=== PATIENT | female | born 1965 | race Asian ===

== ENCOUNTER → 2016-12-07 | Outpatient (CLI) | payer BC ==
[~2016-12-07] MED LIST: RANI150T9 PO
--- NOTE | 2016-12-07 17:52 | RADRPT ---
PROCEDURE: CT Brain without contrast. CLINICAL INDICATION: Headache. TECHNIQUE: A CT of the brain without contrast was performed utilizing axial sections from the skul l base through the vertex. The patient was scanned without intravenous contrast enhancement. Sagitta l and coronal reformatted images were obtained using the data from the axial images. Total exam DLP is 630.20 mGy-cm. CTDIvol is 44.99 mGy. One or more of the following dose reduction techniques we re used: Automated exposure control, adjustment of the mA and/or kV according to patient size, use o f iterative reconstruction technique. COMPARISON: None available FINDINGS: There is normal webster-white matter differentiation. The ventricles and cisterns are normal. There is no intracranial hemorrhage or space-occupying lesion. There is no skull fracture or lytic lesion. IMPRESSION: 1. Normal noncontrast CT scan of the brain. RPTAT: QQ .Jose Shaffer MD, MD Date Time Electronically viewed and signed by .Jose Shaffer MD, MD on 12/07/2016 17:52 .R/
--- NOTE | 2016-12-07 19:24 | RADRPT ---
PROCEDURE: CT scan sinuses CLINICAL INDICATION: Frontal headaches.. TECHNIQUE: CT scan of the sinuses was performed on a multidetector scanner. Direct contiguous axi al images were obtained through the paranasal sinuses. Coronal and sagittal reformatted images were obtained from the axial source images. No IV contrast was administered. Images were reviewed on a high-resolution PACS workstation. CTDlvol = 24 mGy andDLP = 368 mGy-cm. COMPARISON: CT brain 12/07/2016. FINDINGS: There is minimal bilateral maxillary sinus mucosal thickening of 1-2 mm. Remainder of the paranasal sinuses are clear. No air-fluid level is identified. No polyp or mass lesion is seen. There is n o mucoid impaction or mucous retention cyst. The ostiomeatal complexes are symmetrically patent. N meme septum is deviated to the left of midline.. The surrounding osseous structures are unremarkabl e. No mass lesion is seen. The soft tissue structures of the face and orbits and paranasal sinuses regions are all normal. IMPRESSION: 1. No evidence for acute sinusitis. 2. Minimal bilateral maxillary sinus mucosal thickening. 3. Nasal septal deviation to the left. RPTAT: HMVK .Rios Valle MD, MD Date Time Electronically viewed and signed by .Rios Valle MD, on 12/07/2016 19:24 .K/
== END | disposition home or self-care (01) ==
LOC: C/S 15:10
PROVIDERS: ATTEND Internal Medicine
DX: R51 Headache (principal); J34.2 Deviated nasal septum
CPT/HCPCS: 70450; 70486

== ENCOUNTER → 2016-12-08 | Outpatient (CLI) | payer BC | END | disposition home or self-care (01) | LOC: LAB 09:14 | PROVIDERS: ATTEND Internal Medicine | DX: E78.5 Hyperlipidemia, unspecified (principal) | CPT/HCPCS: 80061 ==

== ENCOUNTER → 2017-05-05 | Outpatient (CLI) | payer BC ==
[2017-05-05 10:15] LABS: ADD SCAN DIFF NO
[2017-05-05 10:17] LABS: BASOPHIL # 0.1 10^3/ul (0.0-0.1); BASOPHILS % 1.5 % (0.0-2.0); EOSINOPHILS # 0.1 10^3/ul (0.0-0.5); EOSINOPHILS % 2.5 % (0.0-7.0); HEMATOCRIT 43.9 % (37.0-47.0); HEMOGLOBIN 14.2 g/dl (12.0-16.0); LYMPHOCYTES # 1.5 10^3/ul (0.8-2.9); LYMPHOCYTES % 27.7 % (15.0-51.0); MEAN CORPUSCULAR HEMOGLOBIN 28.3 pg (29.0-33.0); MEAN CORPUSCULAR HGB CONC 32.3 g/dl (32.0-37.0); MEAN CORPUSCULAR VOLUME 87.6 fl (82.0-101.0); MONOCYTE # 0.5 10^3/ul (0.3-0.9); MONOCYTES % 9.8 % (0.0-11.0); NEUTROPHIL # 3.1 10^3/ul (1.6-7.5); NEUTROPHILS % 58.3 % (39.0-77.0); PLATELET COUNT 295 10^3/UL (140-415); RED BLOOD COUNT 5.01 10^6/ul (4.20-5.40); RED CELL DISTRIBUTION WIDTH 12.6 % (11.5-14.5); WHITE BLOOD COUNT 5.3 10^3/ul (4.8-10.8)
[2017-05-05 10:36] LABS: ADD UMIC YES; INR 0.91; PARTIAL THROMBOPLASTIN TIME 29.1 Sec (25.0-35.0); PROTIME 12.2 Sec (12.2-14.2); URINE BILIRUBIN (Dip) NEGATIVE (NEGATIVE); URINE BLOOD (Dip) 3+ (NEGATIVE); URINE COLOR LT. YELLOW (YELLOW); URINE GLUCOSE (Dip) NEGATIVE (NEGATIVE); URINE KETONES (Dip) NEGATIVE (NEGATIVE); URINE LEUKOCYTE ESTERASE (Dip) TRACE (NEGATIVE); URINE NITRITE (Dip) NEGATIVE (NEGATIVE); URINE TOTAL PROTEIN (Dip) NEGATIVE (NEGATIVE); URINE UROBILINOGEN (Dip) 0.2 E.U./dL (0.1-1.0)
[2017-05-05 10:45] LABS: ALBUMIN 5.3 g/dl (3.3-4.9); BILIRUBIN,INDIRECT 0.5 mg/dl (0-1.1); BILIRUBIN,TOTAL 0.5 mg/dl (0.2-1.3); CALCIUM 9.8 mg/dl (8.4-10.2); CHOL/HDL RATIO 2.4 RATIO; CREATININE 0.81 mg/dl (0.44-1.00); MAGNESIUM 2.2 mg/dl (1.7-2.5); POTASSIUM 4.4 mmol/L (3.5-5.1); TOTAL PROTEIN 9.1 g/dl (6.1-8.1); URIC ACID 6.9 mg/dl (3.1-7.9)
[2017-05-05 10:59] LABS: BACTERIA,URINE FEW; URINE RBCS 25-50 /HPF (0)
[2017-05-05 12:19] LABS: T3 UPTAKE 34.5 % (23.5-40.5)
[2017-05-05 12:34] LABS: THYROID STIMULATING HORMONE 2.15 MIU/L (0.465-4.680)
== END | disposition home or self-care (01) ==
LOC: LAB 09:37
PROVIDERS: ATTEND Internal Medicine
DX: R10.9 Unspecified abdominal pain (principal); M54.9 Dorsalgia, unspecified
CPT/HCPCS: 80048; 80061; 80076; 81001; 82607; 82652; 82977; 83036; 83735; 84436; 84443; 84479; 84560; 85025; 85610; 85651; 85730

== ENCOUNTER → 2018-01-04 | Outpatient (CLI) | END | disposition home or self-care (01) ==

== ENCOUNTER → 2018-06-07 | Outpatient (CLI) | END | disposition home or self-care (01) ==

== ENCOUNTER → 2019-05-22 | Outpatient (CLI) | payer BC ==
[~2019-05-22] MED LIST changes: +RANI150T35 PO; -RANI150T9 PO
== END | disposition home or self-care (01) ==
LOC: U/S 09:12
PROVIDERS: ATTEND Internal Medicine
DX: R10.9 Unspecified abdominal pain (principal)
CPT/HCPCS: 76700; 76830; 76856